=== PATIENT | female | born 1980 | race Two or more races ===

== ENCOUNTER 2017-04-10 06:40 | Emergency (ER) | payer SELFPAY ==
[~2017-04-10] VITALS: Ht 172.7 cm; Wt 81.6 kg
[2017-04-10] MEDS ORDERED: IV NORMAL SALINE 1000ML BAG 1,000 ML IV SCH (06:43)
[2017-04-10] MEDS ORDERED: ONDANSETRON PF 4 MG/2 ML VIAL. IV ONE (06:45)
[2017-04-10] MEDS ORDERED: 0.9 % SODIUM CHLORIDE 10 ML DISP.SYRIN. IV PRN (06:45)
[2017-04-10] MEDS ORDERED: HYDROmorphone 2 MG/ML VIAL IV ONE ×2 (07:00→09:00)
[2017-04-10] MEDS ORDERED: ACETAMINOPHEN 500 MG TABLET PO ONE (07:00)
--- NOTE | 2017-04-10 07:00 | PHYS DOC ---
Past Medical History Past Medical History: No Pertinent History Past Surgical History: Cholecystectomy Alcohol Use: None Drug Use: None Adult General Chief Complaint Chief Complaint: ABDOMINAL PAIN IN HPI HPI This is a pleasant 36-year-old otherwise healthy female who is a 004 who is about 13 weeks by LMP presents with crampy lower abdominal pain and vaginal bleeding. She is with her fifth child she's had care at a local physician's office and his on vitamins. Her pain began this morning spontaneously with some bright red blood from her vagina described as copious. She's had some crampy abdominal pain described as suprapubic with no radiation to the back. The pain is crampy and achy described as pressure and 810. She denies any UTI symptoms, denies any diarrhea, constipation but is having some nausea without vomiting. Patient denies any trauma or prior history of same. She has had an ultrasound done of her baby at 11 weeks. She is O+ Review of Systems Review of Systems Constitutional: Denies fever or chills [] Eyes: Denies change in visual acuity, redness, or eye pain [] HENT: Denies nasal congestion or sore throat [] Respiratory: Denies cough or shortness of breath [] Cardiovascular: No additional information not addressed in HPI [] GI: Patient complains primarily of abdominal pain and nausea without vomiting diarrhea bloody stools or constipation. : Denies dysuria or hematuria [] Musculoskeletal: Denies back pain or joint pain [] Integument: Denies rash or skin lesions [] Neurologic: Denies headache, focal weakness or sensory changes [] Endocrine: Denies polyuria or polydipsia [] All other systems were reviewed and found to be within normal limits, except as documented in this note. Current Medications Current Medications Current Medications Medications (Trade) Dose Ordered Sig/Lai Start Time Stop Time Status Last Admin Dose Admin Acetaminophen (Tylenol) 1,000 mg 1X ONCE 04/10/17 07:00 04/10/17 07:02 DC 04/10/17 07:28 1,000 MG Hydromorphone HCl (Dilaudid) 1 mg 1X ONCE 04/10/17 07:00 04/10/17 07:02 DC 04/10/17 07:27 1 MG Ondansetron HCl (Zofran) 4 mg 1X ONCE 04/10/17 06:45 04/10/17 07:02 DC 04/10/17 07:28 4 MG Sodium Chloride (Normal Saline Flush) 10 ml QSHIFT PRN 04/10/17 06:45 Allergies Allergies Allergies Coded Allergies Type Severity Reaction Last Updated Verified meloxicam Allergy Unknown 04/10/17 Yes Physical Exam Physical Exam Other vital signs on the chart within normal limits. Constitutional: Well developed, well nourished, no acute distress, non-toxic appearance. [] HENT: Normocephalic, atraumatic, bilateral external ears normal, oropharynx moist,[] Eyes: PERRLA, EOMI, conjunctiva normal, no discharge. [] Neck: Normal range of motion, no tenderness, supple, no stridor. [] Cardiovascular:Heart rate regular rhythm, no murmur [] Lungs & Thorax: Bilateral breath sounds clear to auscultation [] Abdomen: Bowel sounds normal, soft, she has some mild tenderness to palpation over the suprapubic region uterus is somewhat palpable but nontender. She has no Lowery Deutsch sign no McBurney's point tenderness palpation : Patient's cervical os is closed patient has a slight amount of bleeding from the cervical os with no obvious clot. Patient has no adnexal tenderness or adnexal fullness. Patient's uterus is soft Skin: Warm, dry, no erythema, no rash. [] Back: No tenderness, no CVA tenderness. [] Extremities: No tenderness, no cyanosis, no clubbing, ROM intact, no edema. [] Neurologic: Alert and oriented X 3, normal motor function, normal sensory function, no focal deficits noted. [] Psychologic: Affect normal, judgement normal, mood normal. [] Current Patient Data Vital Signs Vital Signs Date Time Temp Pulse Resp B/P (MAP) Pulse Ox O2 Delivery O2 Flow Rate FiO2 04/10/17 07:27 16 04/10/17 06:48 97.8 68 111/59 (76) 100 Room Air 97.8 Lab Values Laboratory Tests Test 04/10/17 06:52 04/10/17 07:22 04/10/17 07:33 Urine Collection Type Void Urine Color Yellow Urine Clarity Clear Urine pH 6.0 Urine Specific [place] 1.025 Urine Protein Negative mg/dL (NEG-TRACE) Urine Glucose (UA) Negative mg/dL (NEG) Urine Ketones (Stick) Negative mg/dL (NEG) Urine Blood Large (NEG) Urine Nitrite Positive (NEG) Urine Bilirubin Negative (NEG) Urine Urobilinogen Dipstick 0.2 mg/dL (0.2 mg/dL) Urine Leukocyte Esterase Small (NEG) Urine RBC 3-5 /HPF (0-2) Urine WBC 11-20 /HPF (0-4) Urine Squamous Epithelial Cells Mod /LPF Urine Bacteria Many /HPF (0-FEW) Urine Mucus Marked /LPF White Blood Count 8.4 x10^3/uL (4.0-11.0) Red Blood Count 3.74 x10^6/uL (3.50-5.40) Hemoglobin 12.6 g/dL (12.0-15.5) Hematocrit 36.6 % (36.0-47.0) Mean Corpuscular Volume 98 fL (79-100) Mean Corpuscular Hemoglobin 34 pg (25-35) Mean Corpuscular Hemoglobin Concent 34 g/dL (31-37) Red Cell Distribution Width 13.2 % (11.5-14.5) Platelet Count 242 x10^3/uL (140-400) Neutrophils (%) (Auto) 73 % (31-73) Lymphocytes (%) (Auto) 19 % (24-48) L Monocytes (%) (Auto) 6 % (0-9) Eosinophils (%) (Auto) 2 % (0-3) Basophils (%) (Auto) 1 % (0-3) Neutrophils # (Auto) 6.1 x10^3uL (1.8-7.7) Lymphocytes # (Auto) 1.6 x10^3/uL (1.0-4.8) Monocytes # (Auto) 0.5 x10^3/uL (0.0-1.1) Eosinophils # (Auto) 0.1 x10^3/uL (0.0-0.7) Basophils # (Auto) 0.0 x10^3/uL (0.0-0.2) Maternal Serum HCG Beta Subunit 96792 mIU/mL (0-5) H Sodium Level 137 mmol/L (136-145) Potassium Level 3.5 mmol/L (3.5-5.1) Chloride Level 103 mmol/L (98-107) Carbon Dioxide Level 27 mmol/L (21-32) Anion Gap 7 (6-14) Blood Urea Nitrogen 10 mg/dL (7-20) Creatinine 0.5 mg/dL (0.6-1.0) L Estimated GFR (Cockcroft-Gault) 141.2 Glucose Level 76 mg/dL (70-99) Calcium Level 8.4 mg/dL (8.5-10.1) L Total Bilirubin 0.4 mg/dL (0.2-1.0) Direct Bilirubin 0.1 mg/dL (0.0-0.2) Aspartate Amino Transferase (AST) 15 U/L (15-37) Alanine Aminotransferase (ALT) 17 U/L (14-59) Alkaline Phosphatase 76 U/L (46-116) Total Protein 7.2 g/dL (6.4-8.2) Albumin 3.0 g/dL (3.4-5.0) L Lipase 101 U/L (73-393) POC Urine HCG, Qualitative Hcg positive (Negative) Laboratory Tests 04/10/17 07:22 Laboratory Tests 04/10/17 07:22 EKG EKG [] Radiology/Procedures Radiology/Procedures [] [facility] [address] [place] [address] IMAGING REPORT Signed PATIENT: RONNY HERNANDEZ ACCOUNT: [id number] : 1980 LOCATION: ER AGE: 36 SEX: F EXAM STATUS: REG ER ORD. PHYSICIAN: ANN-MARIE CHAVIRA MD REASON: vaginal bleeding PROCEDURE: OB < 14 WKS Clinical Indication: Abdominal pain and bleeding. Technique: Study is dated April 10, 2017. No comparison study is available. Transabdominal imaging was performed. Findings: There is a single intrauterine gestation in variable presentation. The placenta is posterior in location without evidence of placental previa. There are 2 separate areas of subchorionic hemorrhage. 1 is more fundal and extends retroplacental, 3.2 x 2.4 x 6.7 cm in size. The second is more inferior, 2.9 x 4.3 x 1.1 cm. EVIN subjectively is within normal limits. Biometrical data is as follows: BPD = 2.15 cm, with a corresponding gestational age of 13 weeks 4 days. HC = 8.65 cm, with a corresponding gestational age of 13 weeks 6 days. AC = 7.38 cm, with a corresponding gestational age of 13 weeks 6 days. [place]-rump length = 7.88 cm, with a corresponding gestational age of 13 weeks 6 days. Ratio of head circumference to abdominal circumference is 1.17. Overall, the estimated sonographic gestational age is 13 weeks 6 days for an estimated date of delivery of October 10, 2017. heart tones are 153 bpm. IMPRESSION: 1. Single live intrauterine measuring 13 weeks 6 days with heart tones of 153 bpm. 2. Two small areas of subchorionic hemorrhage, one of which extends retroplacental. Short-term follow-up would be recommended. DICTATED and SIGNED BY: TAB YOON MD DATE: 04/10/17822 CC: ANN-MARIE CHAVIRA MD; UNKNOWN PCP NAME ~ Course & Med Decision Making Course & Med Decision Making Pertinent Labs and Imaging studies reviewed. (See chart for details) []She presents as a at about 13 weeks by LMP presents with some spotting and bleeding this morning. Her abdomen is soft, her uterus is about appropriate for dates her ultrasound demonstrates a IUP at 13 weeks 6 days with great cardiac activity at 158. Patient has subtle subchorionic hemorrhage is noted. Patient's exam demonstrates cervical os is closed with slight bleeding. Patient given precautions for bleeding. Patient giving pain medications and Macrobid for her suspected UTI. Although patient's urinary sample is contaminant with epithelial cell she has nitrates, bacteria and white blood cells greater than 11-20 per high-powered field I will treat her in. The as UTI and sent her urinalysis for culture and have her follow with a primary care doctor. Although she's been bleeding that started this morning her CBC is normal as was her CMP. Patient given precautions about menstrual pain and miscarriage precautions. discharge: I've spoken with the patient and/or caregivers. I've explained the patient's condition, diagnosis and treatment plan based on information available to me at this time. I've answered the patient's and/or caregivers questions and addressed any concerns. The patient and/or caregivers have a good understanding the patient's diagnosis, condition and treatment plan as can be expected at this point. Vital signs have been stabilized. The patient's condition is stable for discharge from the emergency department. The patient will pursue further outpatient evaluation with her primary care provider or other designated consulting physician as outlined in the discharge instructions. Patient and/or caregivers are agreeable to this plan of care and follow-up instructions have been explained in detail. The patient and/or caregivers have received these instructions in written format and expressed understanding of these discharge instructions. The patient and her caregivers are aware that if any significant change in condition or worsening of symptoms should prompt him to immediately return to this of the closest emergency department. If an emergent department is not readily available I would encourage him to call 911. All the discharge instructions were provided in Wolof to facilitate understanding Dragon Disclaimer Dragon Disclaimer This electronic medical record was generated, in whole or in part, using a voice recognition dictation system. Departure Departure Impression: Primary Impression: Threatened miscarriage Additional Impressions: Abdominal pain affecting UTI (urinary tract infection) Disposition: HOME, SELF-CARE Condition: IMPROVED Patient Instructions: Abdominal Pain During , Threatened Miscarriage Additional Instructions: discharge: I've spoken with the patient and/or caregivers. I've explained the patient's condition, diagnosis and treatment plan based on information available to me at this time. I've answered the patient's and/or caregivers questions and addressed any concerns. The patient and/or caregivers have a good understanding the patient's diagnosis, condition and treatment plan as can be expected at this point. Vital signs have been stabilized. The patient's condition is stable for discharge from the emergency department. The patient will pursue further outpatient evaluation with her primary care provider or other designated consulting physician as outlined in the discharge instructions. Patient and/or caregivers are agreeable to this plan of care and follow-up instructions have been explained in detail. The patient and/or caregivers have received these instructions in written format and expressed understanding of these discharge instructions. The patient and her caregivers are aware that if any significant change in condition or worsening of symptoms should prompt him to immediately return to this of the closest emergency department. If an emergent department is not readily available I would encourage him to call 911. Scripts Nitrofurantoin Monohyd/M-Cryst (MACROBID 100 MG CAPSULE) 100 Mg Capsule 1 CAP PO BID, #20 CAP Prov: ANN-MARIE CHAVIRA MD 04/10/17 Ondansetron (ZOFRAN ODT) 4 Mg Tab.rapdis 4 MG PO BID Y for NAUSEA/VOMITING for 5 Days, #10 TAB Prov: ANN-MARIE CHAVIRA MD 04/10/17 Acetaminophen (TYLENOL) 325 Mg Tablet 1-2 TAB PO QID, #60 TAB 2 Refills Prov: ANN-MARIE CHAVIRA MD 04/10/17 Problem Qualifiers ANN-MARIE CHAVIRA MD Apr 10, 2017 07:00
[2017-04-10 07:37] LABS: BASO % 1 % (0-3); EOS % 2 % (0-3); HEMATOCRIT 36.6 % (36.0-47.0); HEMOGLOBIN 12.6 g/dL (12.0-15.5); LYMPH # 1.6 x10^3/uL (1.0-4.8); LYMPH % 19 % (24-48); MEAN CORPUSCULAR HEMOGLOBIN 34 pg (25-35); MEAN CORPUSCULAR HGB CONC 34 g/dL (31-37); MEAN CORPUSCULAR VOLUME 98 fL (79-100); MONO % 6 % (0-9); NEUT % 73 % (31-73); PLATELET COUNT 242 x10^3/uL (140-400); RED BLOOD COUNT 3.74 x10^6/uL (3.50-5.40); RED CELL DISTRIBUTION WIDTH 13.2 % (11.5-14.5); WHITE BLOOD COUNT 8.4 x10^3/uL (4.0-11.0)
[2017-04-10 07:44] LABS: CALCIUM 8.4 mg/dL (8.5-10.1); CREATININE 0.5 mg/dL (0.6-1.0); GFR 141.2; POTASSIUM 3.5 mmol/L (3.5-5.1)
[2017-04-10 07:44] LABS: BILIRUBIN,URINE NEGATIVE (NEG); GLUCOSE,URINE NEGATIVE (NEG); NITRITE,URINE POSITIVE (NEG); PROTEIN,URINE NEGATIVE (NEG-TRACE); UROBILINOGEN,URINE 0.2 mg/dL (0.2 mg/dL)
[2017-04-10 07:51] LABS: DIRECT BILIRUBIN 0.1 mg/dL (0.0-0.2); TOTAL BILIRUBIN 0.4 mg/dL (0.2-1.0); TOTAL PROTEIN 7.2 g/dL (6.4-8.2)
[2017-04-10 08:03] LABS: BACTERIA,URINE MANY /HPF (0-FEW); SQUAMOUS EPITHELIAL CELL,UR MOD /LPF
--- NOTE | 2017-04-10 08:34 | RAD ---
Clinical Indication: Abdominal pain and bleeding. Technique: Study is dated April 10, 2017. No comparison study is available. Transabdominal imaging was performed. Findings: There is a single intrauterine gestation in variable presentation. The placenta is posterior in location without evidence of placental previa. There are 2 separate areas of subchorionic hemorrhage. 1 is more fundal and extends retroplacental, 3.2 x 2.4 x 6.7 cm in size. The second is more inferior, 2.9 x 4.3 x 1.1 cm. EVIN subjectively is within normal limits. Biometrical data is as follows: BPD = 2.15 cm, with a corresponding gestational age of 13 weeks 4 days. HC = 8.65 cm, with a corresponding gestational age of 13 weeks 6 days. AC = 7.38 cm, with a corresponding gestational age of 13 weeks 6 days. [place]-rump length = 7.88 cm, with a corresponding gestational age of 13 weeks 6 days. Ratio of head circumference to abdominal circumference is 1.17. Overall, the estimated sonographic gestational age is 13 weeks 6 days for an estimated date of delivery of October 10, 2017. heart tones are 153 bpm. IMPRESSION: 1. Single live intrauterine measuring 13 weeks 6 days with heart tones of 153 bpm. 2. Two small areas of subchorionic hemorrhage, one of which extends retroplacental. Short-term follow-up would be recommended.
[2017-04-10] MEDS ORDERED: ACET325T9 PO (08:52)
[2017-04-10] MEDS ORDERED: ONDA4TAB10 PO (08:52)
[2017-04-10 09:00] VITALS: BP 110/67
[2017-04-10] MEDS ORDERED: NITR100C62 PO (09:00)
== END 2017-04-10 09:33 | disposition home or self-care (01) ==
LOC: ER 06:40
DX: O20.0 Threatened abortion (principal); O23.41 Unspecified infection of urinary tract in pregnancy, first trimester; Z90.49 Acquired absence of other specified parts of digestive tract; Z88.8 Allergy status to other drugs, medicaments and biological substances; Z3A.13 13 weeks gestation of pregnancy
CPT/HCPCS: 36415; 76801; 80048; 80076; 81001; 81025; 83690; 84702; 85025; 86900; 86901; 87086; 96361; 96374; 96375; 96376; 99285; J1170; J2405; J7030